=== PATIENT | male | born 1965 | race Caucasian/White ===

== ENCOUNTER 2018-11-08 05:34 | Day surgery (SDC) | payer OTHER ==
[2018-11-03 15:47] LABS: BASOPHILS % (AUTO) 0.7 % (0-1); EOSINOPHILS # (AUTO) 0.1 X10'3 (0-0.9); EOSINOPHILS % (AUTO) 1.7 % (0-6); LYMPHOCYTES # (AUTO) 1.7 X10'3 (1.1-4.8); LYMPHOCYTES % (AUTO) 26.3 % (21-51); MEAN CORPUSCULAR HEMOGLOBIN 31.5 PG (27.0-31.0); MEAN CORPUSCULAR HGB CONC 34.6 g/dL (33.0-36.5); MEAN CORPUSCULAR VOLUME 90.8 FL (78-98); MEAN PLATELET VOLUME 7.8 FL (7.4-10.4); MONOCYTES # (AUTO) 0.4 X10'3 (0-0.9); MONOCYTES % (AUTO) 6.2 % (2-12); NEUTROPHILS # (AUTO) 4.2 X10'3 (1.8-7.7); NEUTROPHILS % (AUTO) 65.1 % (42-75); PRE OP HEMOGLOBIN 14.6 g/dL (14.0-17.9); PRE OP PLATELET COUNT 290 X10'3 (140-440); RED BLOOD COUNT 4.63 X10'6 (4.70-6.10); RED CELL DISTRIBUTION WIDTH 13.1 % (11.5-14.5)
[2018-11-03 15:58] LABS: ALBUMIN 3.8 G/DL (3.4-5.0); ALKALINE PHOSPHATASE 108 IU/L (46-116); BLOOD UREA NITROGEN 23 MG/DL (7-18); BUN/CREATININE RATIO 20.5 (5.4-32.0); CALCIUM 8.5 MG/DL (8.5-10.1); CHLORIDE 107 MMOL/L (99-107); CREATININE 1.12 MG/DL (0.60-1.10); PRE OP ALT 34 U/L (30-65); PRE OP ANION GAP 7 (8-16); PRE OP AST 15 U/L (10-37); PRE OP BILIRUB, TOTAL 0.2 MG/DL (0.0-1.0); PRE OP GLUCOSE 125 MG/DL (70-104); PRE OP POTASSIUM 3.8 MMOL/L (3.4-5.1); PRE OP SODIUM 140 MMOL/L (135-145); TOTAL CARBON DIOXIDE 26.5 MMOL/L (24-32); TOTAL PROTEIN 7.7 G/DL (6.4-8.2); eGFR 68 ML/MIN
[~2018-11-08] VITALS: Ht 177.8 cm; Wt 98.0 kg
[2018-11-08] VITALS (12 sets, daily range): BP systolic 93–137; BP diastolic 42–93
[~2018-11-08 05:34] MED LIST: NO HOME MEDS; cefazolin/dext.iso 2gm/100 ML IV ONE; famotidine 20mg tablet PO ONE; ringers solution, lacted 1,000 ML IV SCH
[2018-11-08] MEDS ORDERED: BUPIVAcaine/PF 2.5 mg/ml (0.25%) 30ml vial ONE (06:40)
[2018-11-08] MEDS ORDERED: LIDOcaine 1% 30ml preserv. free vial ONE (06:41)
[2018-11-08] MEDS ORDERED: midazolam 2 mg/2 ml injection ONE ×2 (07:06→07:15)
[2018-11-08] MEDS ORDERED: propofol inj 20 ML IV ONE (07:15)
[2018-11-08] MEDS ORDERED: fentaNYL/PF 50MCG/1 ML 2ML syringe ONE (07:15)
[2018-11-08] MEDS ORDERED: rocuronium 10mg/ml inj IV ONE (07:15)
[2018-11-08] MEDS ORDERED: sevoflurane 250ml liquid IH ONE (07:18)
[2018-11-08] MEDS ORDERED: ringers solution, lacted 1,000 ML IV SCH (08:15)
[2018-11-08] MEDS ORDERED: proCHLORperazine 10 MG/2 ml inj IV PRN (08:15)
[2018-11-08] MEDS ORDERED: meperidine/PF 25mg/ml syringe IV PRN ×3 (08:15)
[2018-11-08] MEDS ORDERED: ondansetron/PF 4mg/2ml inj IV PRN (08:15)
[2018-11-08] MEDS ORDERED: morphine 4 MG/ML inj SYRINge IV PRN ×2 (08:15)
[2018-11-08] MEDS ORDERED: ketorolac trometh. 30mg/ml inj. IV ONE (08:15)
[2018-11-08] MEDS ORDERED: dexamethasone sod phosphate 4mg/ml inj. ONE (08:55)
[2018-11-08] MEDS ORDERED: acetaminophen 1,000mg/100ml IV 100 ML IV ONE (08:55)
[2018-11-08] MEDS ORDERED: neostigmine methylsulfate 1 MG/ML 10ml vial ONE (08:56)
[2018-11-08] MEDS ORDERED: ondansetron/PF 4mg/2ml inj ONE (08:56)
[2018-11-08] MEDS ORDERED: glycopyrrolate 0.2mg/ml inj ONE (08:56)
--- NOTE | 2018-11-08 09:15 | NUR ---
Received from OR via , accompanied by Anesthesiologist and report given by Anesthesiolgist. PATIENT WAKING UP, DENIES PAIN, V/S WNL, NEUROVASCULAR CHECKS INTACT, 20G PIV RUE , 3 BANDAIDS TO ABDOMEN CDI. SCD ON.
[2018-11-08] MEDS ORDERED: oxyCODONE/APAP 5-325mg tablet PO ONE (09:25)
--- NOTE | 2018-11-08 10:55 | NUR ---
PATIENT A&OX4, DENIES PAIN, V/S WNL, NEUROVASCULAR CHECKS INTACT, 20G PIV LUE D/C, SCD OFF, 4 BANDAIDS TO LAP SIGHTS OF ABDOMEN CDI.. I HAVE REVIEWED D/C INSTRUCTIONS WITH PATIENT AND FAMILY HAVE VERBALIZED UNDERSTANDING.PATIENT WAS D/C HOME WITH ALL BELONGINGS AND FAMILY GAVE TRANSPORT HOME.
== END 2018-11-08 10:55 | disposition home or self-care (01) ==
LOC: PAS 05:34
PROVIDERS: ATTEND Surgery
DX: K40.20 Bilateral inguinal hernia, without obstruction or gangrene, not specified as recurrent (principal); K42.0 Umbilical hernia with obstruction, without gangrene; Z72.89 Other problems related to lifestyle; Z98.52 Vasectomy status; Z83.6 Family history of other diseases of the respiratory system; Z79.899 Other long term (current) drug therapy
CPT/HCPCS: 36415; 49587; 49650; 80053; 82948; 85025; 93005; C1781; J0131; J1100; J1885; J2001; J2175; J2250; J2405; J2704; J2710; J3010; J3490; S2900; A4215; A4618; J7120

== ENCOUNTER 2019-01-11 05:54 | Emergency (ER) | payer OTHER, BC ==
[~2019-01-11] VITALS: Ht 177.8 cm; Wt 91.0 kg
[~2019-01-11 05:54] MED LIST changes: -cefazolin/dext.iso 2gm/100 ML IV ONE; -famotidine 20mg tablet PO ONE; -ringers solution, lacted 1,000 ML IV SCH
[2019-01-11 06:03] VITALS: BP 165/72
[2019-01-11] MEDS ORDERED: predniSONE 20 mg tablet PO ONE (06:55)
[2019-01-11] MEDS ORDERED: diphenhydrAMINE 25mg capsule PO ONE (06:55)
[2019-01-11] MEDS ORDERED: famotidine 20mg tablet PO ONE (06:55)
[2019-01-11] MEDS ORDERED: HYDR25CA PO (07:04)
[2019-01-11] MEDS ORDERED: PRED20TA PO (07:04)
[2019-01-11] MEDS ORDERED: FAMO40TA73 PO (07:04)
[2019-01-12] MEDS ORDERED: PRED10TA23 PO (10:09)
[2019-01-12] MEDS ORDERED: FAMO20TA8 PO (12:53)
== END 2019-01-11 07:34 | disposition home or self-care (01) ==
LOC: ER 05:55
DX: R21 Rash and other nonspecific skin eruption (principal); Z79.899 Other long term (current) drug therapy
CPT/HCPCS: 99284; J7512; Q0163

== ENCOUNTER 2019-01-12 07:44 | Inpatient (IN) | payer BC, OTHER ==
[~2019-01-12] VITALS: Ht 177.8 cm; Wt 98.0 kg
[~2019-01-12 07:44] MED LIST changes: +FAMO40TA73 PO; +HYDR25CA PO; +PRED20TA PO
[2019-01-12 08:48] LABS: BASOPHILS % (AUTO) 0.2 % (0-1); EOSINOPHILS % (AUTO) 0.1 % (0-6); HEMATOCRIT 42.8 % (42.0-52.0); HEMOGLOBIN 14.7 g/dl (14.0-17.9); LYMPHOCYTES # (AUTO) 0.4 X10'3 (1.1-4.8); LYMPHOCYTES % (AUTO) 6.7 % (21-51); MEAN CORPUSCULAR HEMOGLOBIN 31.8 PG (27.0-31.0); MEAN CORPUSCULAR HGB CONC 34.5 g/dL (33.0-36.5); MEAN CORPUSCULAR VOLUME 92.1 FL (78-98); MEAN PLATELET VOLUME 8.1 FL (7.4-10.4); MONOCYTES # (AUTO) 0.2 X10'3 (0-0.9); MONOCYTES % (AUTO) 2.5 % (2-12); NEUTROPHILS # (AUTO) 5.6 X10'3 (1.8-7.7); NEUTROPHILS % (AUTO) 90.5 % (42-75); PLATELET COUNT 227 X10'3 (140-440); RED BLOOD COUNT 4.64 X10'6 (4.70-6.10); RED CELL DISTRIBUTION WIDTH 12.6 % (11.5-14.5); WHITE BLOOD COUNT 6.2 X10'3 (4.5-11.0)
[2019-01-12 09:00] LABS: ALANINE AMINOTRANSFERASE 56 U/L (12-78); ALBUMIN 3.6 G/DL (3.4-5.0); ALBUMIN/GLOBULIN RATIO 0.8 (1.1-1.5); ALKALINE PHOSPHATASE 82 IU/L (46-116); ANION GAP 9 (8-16); ASPARTATE AMINO TRANSFERASE 46 U/L (10-37); BILIRUBIN,TOTAL 0.4 MG/DL (0.1-1.0); BLOOD UREA NITROGEN 23 MG/DL (7-18); BUN/CREATININE RATIO 16.2 (5.4-32.0); CHLORIDE 102 MMOL/L (99-107); CREATININE 1.42 MG/DL (0.60-1.10); GLUCOSE 163 MG/DL (70-104); POTASSIUM 3.8 MMOL/L (3.5-5.1); SODIUM 136 MMOL/L (135-145); TOTAL CARBON DIOXIDE 24.7 MMOL/L (24-32); TOTAL PROTEIN 7.9 G/DL (6.4-8.2); eGFR 52 ML/MIN
[2019-01-12 09:12] LABS: C-REACTIVE PROTEIN 6.17 MG/DL (0.0-0.5)
[2019-01-12] MEDS ORDERED: PRED10TA23 PO (10:09)
[2019-01-12] MEDS ORDERED: diphenhydrAMINE 25mg capsule PO PRN (11:50)
[2019-01-12] MEDS ORDERED: magnesium 4gm in 100ml NS 100 ML IV PRN (11:50)
[2019-01-12] MEDS ORDERED: mag hydrox/Alum hydrox/simeth 30ml oral suspension PO PRN (11:50)
[2019-01-12] MEDS ORDERED: morphine 2 MG/ML inj. syringe IV PRN ×2 (11:50)
[2019-01-12] MEDS ORDERED: methylPREDNISolone sod succ 125mg/2ml vial IV ONE (11:50)
[2019-01-12] MEDS ORDERED: magnesium hydroxide 30ml (MOM) UD suspension PO PRN (11:50)
[2019-01-12] MEDS ORDERED: acetaminophen 325mg tablet PO PRN (11:50)
[2019-01-12] MEDS ORDERED: metoclopramide 5 mg/ml inj IV PRN (11:50)
[2019-01-12] MEDS ORDERED: magnesium Cl slow-release 64mg tablet PO PRN (11:50)
[2019-01-12] MEDS ORDERED: HYDROcodone/acetaminophen 5mg/325mg tablet PO PRN (11:50)
[2019-01-12] MEDS ORDERED: potassium Cl 20 mEq SR tablet PO PRN ×2 (11:50)
[2019-01-12] MEDS ORDERED: acetaminophen 650mg rectal suppository RC PRN (11:50)
[2019-01-12] MEDS ORDERED: potassium CL 10mEq/100ml bag 100 ML IV PRN ×2 (11:50)
[2019-01-12] MEDS ORDERED: ondansetron/PF 4mg/2ml inj IV PRN (11:50)
[2019-01-12] MEDS ORDERED: bisacodyl 10mg suppository rectal RC PRN (11:50)
[2019-01-12] MEDS: K and/or MAG REPLACEMENT MC SCH (11:50)
[2019-01-12] MEDS ORDERED: magnesium 2GM in 50ml NS 50 ML IV PRN (11:50)
[2019-01-12] MEDS ORDERED: HYDROcodone/acetaminophen 10/325mg tab PO PRN (11:50)
[2019-01-12] MEDS ORDERED: ondansetron/PF 4mg/2ml inj IV ONE (11:55)
[2019-01-12] MEDS ORDERED: LORazepam 2 mg/ml vial IV ONE ×2 (11:55→12:10)
[2019-01-12] MEDS: normal saline 1000ml 1,000 ML IV SCH ×2 (12:06→17:01)
[2019-01-12 12:21] LABS: RHEUM FACTOR QUAL REFLEX TITER NEGATIVE (Neg)
[2019-01-12 12:27] LABS: HEMOGLOBIN A1C 5.7 % (4.5-6.2)
[2019-01-12] MEDS: diphenhydrAMINE 50 mg/ml inj IV SCH ×3 (12:28→20:30)
[2019-01-12] MEDS ORDERED: FAMO20TA8 PO (12:53)
[2019-01-12] MEDS ORDERED: piperacillin/tazo 3.375gm/50ml 50 ML IV SCH (12:56)
[2019-01-12] MEDS: famotidine/PF IV inj 40 MG in normal saline 100ml IV soln 96 ML IV SCH (13:00)
[2019-01-12] MEDS: acetaminophen 325mg tablet PO PRN (13:14)
--- NOTE | 2019-01-12 13:30 | NUR ---
paged hospitalist regarding temperature of 103.2.
[2019-01-12] MEDS: methylPREDNISolone sod succ 125mg/2ml vial IV SCH ×2 (14:00→20:25)
[2019-01-12] MEDS ORDERED: VANCOmycin 1250MG/NS 250ml Bag 250 ML IV SCH (14:00)
--- NOTE | 2019-01-12 14:21 | NUR ---
called Dr. William and informed of pts retaken temp. of 103.1. Received VO to give Motrin 600mg PO x1 now and infuse cooled fluids of 1L NS x 1 bolus now.
[2019-01-12] MEDS ORDERED: ibuprofen 200mg tablet PO ONE (14:25)
[2019-01-12] MEDS ORDERED: normal saline 1000ml 1,000 ML IV ONE (14:25)
[2019-01-12 15:00] VITALS: BP 93/59
[2019-01-12] MEDS ORDERED: LORazepam 2 mg/ml vial IV PRN (16:00)
[2019-01-12 17:30] LABS: HIV ANTIBODY 1&2 RAPID NON-REACTIVE (Neg)
[2019-01-12 18:00] VITALS: BP 99/56
--- NOTE | 2019-01-12 18:38 | NUR ---
Patient report to Zachariah CISNEROS
--- NOTE | 2019-01-12 19:00 | NUR ---
Patient in room [facility]TH[facility] 4014. I have received report from Mayank CISNEROS and had the opportunity to ask questions and assume patient care.
[2019-01-12] MEDS: heparin, porcine 5000 units/ml vial SQ SCH (20:35)
[2019-01-12] MEDS: doxycycline inj 100 MG in normal saline 100ml IV soln 100 ML IV SCH (20:42)
[2019-01-12] MEDS ORDERED: temazepam 15mg capsule PO PRN (21:00)
[2019-01-12 22:00] VITALS: BP 99/63
[2019-01-13] MEDS: famotidine/PF IV inj 40 MG in normal saline 100ml IV soln 96 ML IV SCH ×2 (00:04→10:43)
[2019-01-13] MEDS: methylPREDNISolone sod succ 125mg/2ml vial IV SCH ×5 (02:56→20:00)
[2019-01-13] MEDS: diphenhydrAMINE 50 mg/ml inj IV SCH ×3 (02:57→14:19)
[2019-01-13] MEDS: normal saline 1000ml 1,000 ML IV SCH ×2 (04:47→12:20)
[2019-01-13 06:00] VITALS: BP 110/65
--- NOTE | 2019-01-13 06:49 | NUR ---
Patient in room [facility]TH[facility] 4014. I have received report from Zachariah CISNEROS and had the opportunity to ask questions and assume patient care.
[2019-01-13 07:04] LABS: RPR Non Reactive (Non Reactive)
[2019-01-13 07:17] LABS: BASOPHILS % (AUTO) 0 % (0-1); EOSINOPHILS % (AUTO) 0 % (0-6); HEMATOCRIT 42.5 % (42.0-52.0); HEMOGLOBIN 14.7 g/dl (14.0-17.9); LYMPHOCYTES # (AUTO) 0.5 X10'3 (1.1-4.8); LYMPHOCYTES % (AUTO) 6.7 % (21-51); MEAN CORPUSCULAR HEMOGLOBIN 31.9 PG (27.0-31.0); MEAN CORPUSCULAR HGB CONC 34.7 g/dL (33.0-36.5); MEAN PLATELET VOLUME 8.5 FL (7.4-10.4); MONOCYTES # (AUTO) 0.1 X10'3 (0-0.9); MONOCYTES % (AUTO) 1.2 % (2-12); NEUTROPHILS # (AUTO) 7.2 X10'3 (1.8-7.7); NEUTROPHILS % (AUTO) 92.1 % (42-75); PLATELET COUNT 227 X10'3 (140-440); RED BLOOD COUNT 4.62 X10'6 (4.70-6.10); RED CELL DISTRIBUTION WIDTH 12.7 % (11.5-14.5); WHITE BLOOD COUNT 7.8 X10'3 (4.5-11.0)
[2019-01-13 07:34] LABS: ALANINE AMINOTRANSFERASE 51 U/L (12-78); ALBUMIN 3.3 G/DL (3.4-5.0); ALBUMIN/GLOBULIN RATIO 0.7 (1.1-1.5); ALKALINE PHOSPHATASE 68 IU/L (46-116); ANION GAP 11 (8-16); ASPARTATE AMINO TRANSFERASE 24 U/L (10-37); BILIRUBIN,TOTAL 0.3 MG/DL (0.1-1.0); BLOOD UREA NITROGEN 20 MG/DL (7-18); BUN/CREATININE RATIO 18.9 (5.4-32.0); CALCIUM 8.4 MG/DL (8.5-10.1); CHLORIDE 106 MMOL/L (99-107); CHOL/HDL RATIO 4.1 (0.00-4.99); CHOLESTEROL 182 MG/DL (0-200); CREATININE 1.06 MG/DL (0.60-1.10); GLUCOSE 140 MG/DL (70-104); HDL CHOLESTEROL 44 MG/DL (35-60); LDL CHOLESTEROL 128 MG/DL (50-100); MAGNESIUM 2.1 MG/DL (1.5-2.4); PHOSPHORUS 3.1 MG/DL (2.3-4.5); POTASSIUM 3.8 MMOL/L (3.5-5.1); SODIUM 142 MMOL/L (135-145); TRIGLYCERIDES 71 MG/DL (20-135); eGFR 73 ML/MIN
[2019-01-13] MEDS: doxycycline inj 100 MG in normal saline 100ml IV soln 100 ML IV SCH ×2 (08:04→20:23)
[2019-01-13] MEDS: heparin, porcine 5000 units/ml vial SQ SCH ×2 (08:05→20:22)
[2019-01-13] MEDS: K and/or MAG REPLACEMENT MC SCH (08:08)
[2019-01-13 09:59] LABS: URINE AMPHETAMINE SCREEN NEGATIVE (Neg); URINE BARBITUATE SCREEN NEGATIVE (Neg); URINE BENZODIAZEPINES SCREEN NEGATIVE (Neg); URINE CANNABINOID SCREEN NEGATIVE (Neg); URINE COCAINE SCREEN NEGATIVE (Neg); URINE METHADONE SCREEN NEGATIVE (Neg); URINE OPIATE SCREEN NEGATIVE (Neg); URINE PHENCYCLIDINE SCREEN NEGATIVE (Neg)
[2019-01-13 10:00] VITALS: BP 111/74
[2019-01-13 10:06] LABS: CLARITY,URINE CLEAR (Clear); COLOR,URINE YELLOW (Yellow); GLUCOSE, URINE >=1000 mg/dl (Neg); KETONES,URINE NEGATIVE (Neg); LEUKOCYTE ESTERASE ,URINE NEGATIVE (Neg); NITRITES, URINE NEGATIVE (Neg); OCCULT BLOOD,URINE SMALL (Neg); PH,URINE 5.5 (4.8-8.0); PROTEIN,URINE NEGATIVE (Neg); UROBILINOGEN,URINE 0.2 E.U/dL (0.2-1.0)
[2019-01-13 10:07] LABS: UA COLLECTION TYPE NON-SPECIFIED
[2019-01-13 10:11] LABS: SQUAMOUS EPITHELIAL CELL,UR FEW /LPF (FEW)
[2019-01-13 10:12] LABS: BACTERIA,URINE FEW /HPF (Neg); RBC,URINE 20-50 /HPF (0-2); WBC,URINE 0-4 /HPF (0-4)
[2019-01-13] MEDS: acetaminophen 325mg tablet PO PRN (15:06)
--- NOTE | 2019-01-13 18:24 | NUR ---
Problems reprioritized. Patient report given, questions answered & plan of care reviewed with Zachariah CISNEROS.
[2019-01-13 20:00] VITALS: BP 123/72
[2019-01-13] MEDS: famotidine 20mg tablet PO SCH (20:21)
[2019-01-13] MEDS: lactobacillus rhamnosus 10,000 MMU CELLS/CAPSULE PO SCH (20:21)
[2019-01-13 22:00] VITALS: BP 130/69
[2019-01-14] MEDS: methylPREDNISolone sod succ 125mg/2ml vial IV SCH ×3 (00:13→16:10)
[2019-01-14] MEDS ORDERED: VANCOMYCIN LEVEL IV ONE (01:30)
[2019-01-14 06:00] VITALS: BP 110/68
--- NOTE | 2019-01-14 06:00 | NUR ---
Patient in room [facility]TH[facility] 4014. I have received report from Zachariah CISNEROS and had the opportunity to ask questions and assume patient care.
[2019-01-14 06:24] LABS: ALANINE AMINOTRANSFERASE 44 U/L (12-78); ALBUMIN 3.2 G/DL (3.4-5.0); ALBUMIN/GLOBULIN RATIO 0.7 (1.1-1.5); ALKALINE PHOSPHATASE 63 IU/L (46-116); ANION GAP 8 (8-16); ASPARTATE AMINO TRANSFERASE 19 U/L (10-37); BILIRUBIN,TOTAL 0.3 MG/DL (0.1-1.0); BLOOD UREA NITROGEN 22 MG/DL (7-18); BUN/CREATININE RATIO 20.2 (5.4-32.0); CALCIUM 8.5 MG/DL (8.5-10.1); CHLORIDE 106 MMOL/L (99-107); CREATININE 1.09 MG/DL (0.60-1.10); GLUCOSE 139 MG/DL (70-104); MAGNESIUM 2.2 MG/DL (1.5-2.4); PHOSPHORUS 3.6 MG/DL (2.3-4.5); POTASSIUM 4.1 MMOL/L (3.5-5.1); SODIUM 141 MMOL/L (135-145); TOTAL CARBON DIOXIDE 27.1 MMOL/L (24-32); TOTAL PROTEIN 7.7 G/DL (6.4-8.2); eGFR 70 ML/MIN
[2019-01-14 06:39] LABS: BASOPHILS % (AUTO) 0.1 % (0-1); NEUTROPHILS % (AUTO) 89.8 % (42-75)
[2019-01-14 06:41] LABS: EOSINOPHILS % (AUTO) 0.1 % (0-6); HEMOGLOBIN 14.5 g/dl (14.0-17.9); LYMPHOCYTES # (AUTO) 0.8 X10'3 (1.1-4.8); LYMPHOCYTES % (AUTO) 7.5 % (21-51); MEAN CORPUSCULAR HGB CONC 35.3 g/dL (33.0-36.5); MEAN CORPUSCULAR VOLUME 90.8 FL (78-98); MONOCYTES # (AUTO) 0.2 X10'3 (0-0.9); MONOCYTES % (AUTO) 2.5 % (2-12); NEUTROPHILS # (AUTO) 9.1 X10'3 (1.8-7.7); PLATELET COUNT 288 X10'3 (140-440); RED BLOOD COUNT 4.51 X10'6 (4.70-6.10); RED CELL DISTRIBUTION WIDTH 12.5 % (11.5-14.5); WHITE BLOOD COUNT 10.1 X10'3 (4.5-11.0)
[2019-01-14] MEDS: famotidine 20mg tablet PO SCH (07:52)
[2019-01-14] MEDS: lactobacillus rhamnosus 10,000 MMU CELLS/CAPSULE PO SCH (07:52)
[2019-01-14] MEDS: doxycycline inj 100 MG in normal saline 100ml IV soln 100 ML IV SCH (07:52)
[2019-01-14] MEDS: heparin, porcine 5000 units/ml vial SQ SCH (07:53)
[2019-01-14] MEDS: K and/or MAG REPLACEMENT MC SCH (08:00)
[2019-01-14 09:06] LABS: HBSAG SCREEN Negative (Negative); HEP A AB, IGM Negative (Negative); HEP B CORE AB, IGM Negative (Negative); HEPATITIS C ANTIBODY <0.1 s/co ratio (0.0-0.9)
[2019-01-14 10:00] VITALS: BP 137/79
[2019-01-14] MEDS ORDERED: DIPH-423 PO (15:29)
[2019-01-14] MEDS ORDERED: DOXY100C2 PO (15:30)
[2019-01-14] MEDS ORDERED: PRED10TA23 PO (15:30)
== END 2019-01-14 16:40 | disposition home or self-care (01) | DRG 684 ==
LOC: ER 07:44 → ED HOLD 11:48 → ORTHO 4S 15:09
PROVIDERS: ADMIT Family Medicine; ATTEND Hospitalist
DX: N17.9 Acute kidney failure, unspecified (principal); R21 Rash and other nonspecific skin eruption; Z80.0 Family history of malignant neoplasm of digestive organs; Z82.0 Family history of epilepsy and other diseases of the nervous system; Z82.5 Family history of asthma and other chronic lower respiratory diseases
CPT/HCPCS: 36415; 71045; 80053; 80061; 80305; 81001; 83036; 83605; 83735; 84100; 84145; 85025; 85610; 85651; 86038; 86140; 86430; 86592; 86695; 86696; 86703; 86705; 86706; 86709; 86803; 87040; 87340; 99285; G0378; J1200; J1644; J2060; J2405; J2543; J2930; J3370; J3490; J7030

== ENCOUNTER 2019-03-28 05:21 | Day surgery (SDC) | payer OTHER ==
[2019-03-24 16:11] LABS: BASOPHILS % (AUTO) 0.8 % (0-1); EOSINOPHILS # (AUTO) 0.1 X10'3 (0-0.9); LYMPHOCYTES # (AUTO) 1.9 X10'3 (1.1-4.8); LYMPHOCYTES % (AUTO) 33.5 % (21-51); MEAN CORPUSCULAR HEMOGLOBIN 31.9 PG (27.0-31.0); MEAN CORPUSCULAR HGB CONC 35.3 g/dL (33.0-36.5); MEAN CORPUSCULAR VOLUME 90.4 FL (78-98); MONOCYTES # (AUTO) 0.5 X10'3 (0-0.9); NEUTROPHILS # (AUTO) 3.2 X10'3 (1.8-7.7); NEUTROPHILS % (AUTO) 55.7 % (42-75); PRE OP HEMATOCRIT 43.2 % (42.0-52.0); PRE OP HEMOGLOBIN 15.2 g/dL (14.0-17.9); PRE OP PLATELET COUNT 319 X10'3 (140-440); RED BLOOD COUNT 4.77 X10'6 (4.70-6.10)
[2019-03-24 16:17] LABS: ALBUMIN/GLOBULIN RATIO 1.1 (1.1-1.5); ALKALINE PHOSPHATASE 108 IU/L (46-116); BLOOD UREA NITROGEN 20 MG/DL (7-18); BUN/CREATININE RATIO 18.5 (5.4-32.0); CALCIUM 8.6 MG/DL (8.5-10.1); CHLORIDE 106 MMOL/L (99-107); CREATININE 1.08 MG/DL (0.60-1.10); PRE OP ALT 36 U/L (30-65); PRE OP ANION GAP 10 (8-16); PRE OP AST 19 U/L (10-37); PRE OP BILIRUB, TOTAL 0.3 MG/DL (0.0-1.0); PRE OP GLUCOSE 108 MG/DL (70-104); PRE OP POTASSIUM 4.1 MMOL/L (3.4-5.1); PRE OP SODIUM 142 MMOL/L (135-145); TOTAL CARBON DIOXIDE 26.5 MMOL/L (24-32); TOTAL PROTEIN 7.6 G/DL (6.4-8.2); eGFR 71 ML/MIN
[2019-03-28] VITALS (16 sets, daily range): BP systolic 106–160; BP diastolic 55–94
[~2019-03-28] VITALS: Ht 152.4 cm; Wt 98.0 kg
[~2019-03-28 05:21] MED LIST changes: -FAMO40TA73 PO; -HYDR25CA PO; -PRED20TA PO; +ringers solution, lacted 1,000 ML IV SCH
[2019-03-28] MEDS ORDERED: cefazolin/dext.iso 2gm/100ml 100 ML IV ONE (05:30)
[2019-03-28] MEDS ORDERED: famotidine 10mg tablet PO ONE (05:30)
[2019-03-28] MEDS ORDERED: LIDOcaine 1% 30ml preserv. free vial ONE (06:55)
[2019-03-28] MEDS ORDERED: BUPIVAcaine/PF 2.5 mg/ml (0.25%) 30ml vial ONE (06:56)
[2019-03-28] MEDS ORDERED: BUPIVACAINE liposomal/PF 13.3 MG/ML vial IM ONE (06:56)
[2019-03-28] MEDS ORDERED: BUPIVAcaine/PF 2.5mg/ml (0.25%) 10ml vial ONE (06:56)
[2019-03-28] MEDS ORDERED: midazolam 2 mg/2 ml injection ONE ×2 (07:08→07:17)
[2019-03-28] MEDS ORDERED: fentaNYL/PF 50MCG/1 ML 2ML syringe ONE (07:17)
[2019-03-28] MEDS ORDERED: propofol inj 20 ML IV ONE (07:18)
[2019-03-28] MEDS ORDERED: rocuronium 10mg/ml inj IV ONE (07:18)
[2019-03-28] MEDS ORDERED: ondansetron/PF 4mg/2ml inj ONE (07:21)
[2019-03-28] MEDS ORDERED: sevoflurane 250ml liquid IH ONE (07:21)
[2019-03-28] MEDS ORDERED: dexamethasone sod phosphate 4mg/ml inj. ONE (07:37)
[2019-03-28] MEDS ORDERED: ringers solution, lacted 1,000 ML IV SCH (08:03)
[2019-03-28] MEDS ORDERED: ondansetron/PF 4mg/2ml inj IV PRN (08:05)
[2019-03-28] MEDS ORDERED: meperidine/PF 25mg/ml syringe IV PRN ×3 (08:05)
[2019-03-28] MEDS ORDERED: proCHLORperazine 10 MG/2 ml inj IV PRN (08:05)
[2019-03-28] MEDS ORDERED: morphine 4 MG/ML inj SYRINge IV PRN ×2 (08:05)
[2019-03-28] MEDS ORDERED: neostigmine methylsulfate 1 MG/ML 10ml vial ONE (08:28)
[2019-03-28] MEDS ORDERED: glycopyrrolate 0.2mg/ml inj ONE (08:45)
[2019-03-28] MEDS ORDERED: oxyCODONE/APAP 5-325mg tablet PO PRN ×2 (08:55)
--- NOTE | 2019-03-28 08:55 | NUR ---
ADMITTED TO PACU FROM OR ACCOMPANIED BY ANESTHESIA. INTIAL PHYSICAL ASSESSMENT DONE AND RECORDED. REPORT RECEIVED FROM ANESTHESIA.
--- NOTE | 2019-03-28 11:15 | NUR ---
DISCHARGE CRITERIA MET, DISCHARGE INSTRUCTIONS GIVEN, DEMONSTRATES VERBAL UNDERSTANDING. DISCHARGED HOME IN GOOD CONDITION.
== END 2019-03-28 11:15 | disposition home or self-care (01) ==
LOC: PAS 05:21
PROVIDERS: ATTEND Surgery
DX: K42.9 Umbilical hernia without obstruction or gangrene (principal); Z79.899 Other long term (current) drug therapy
CPT/HCPCS: 36415; 49652; 64488; 80053; 82948; 85025; C1781; C9290; J1100; J2001; J2175; J2250; J2405; J2704; J2710; J3010; J3490; S2900; A4215; A4618; J7120

== ENCOUNTER 2019-10-25 20:54 | Emergency (ER) | payer OTHER ==
[~2019-10-25] VITALS: Ht 172.7 cm; Wt 95.0 kg
[~2019-10-25 20:54] MED LIST changes: -ringers solution, lacted 1,000 ML IV SCH
[2019-10-25 21:50] LABS: BASOPHILS % (AUTO) 0.3 % (0-1); EOSINOPHILS # (AUTO) 0.1 X10'3 (0-0.9); EOSINOPHILS % (AUTO) 0.7 % (0-6); HEMATOCRIT 42.8 % (42.0-52.0); HEMOGLOBIN 14.9 g/dl (14.0-17.9); LYMPHOCYTES # (AUTO) 1.2 X10'3 (1.1-4.8); LYMPHOCYTES % (AUTO) 14.5 % (21-51); MEAN CORPUSCULAR HEMOGLOBIN 31.8 PG (27.0-31.0); MEAN CORPUSCULAR HGB CONC 34.7 g/dL (33.0-36.5); MEAN CORPUSCULAR VOLUME 91.7 FL (78-98); MONOCYTES # (AUTO) 0.4 X10'3 (0-0.9); MONOCYTES % (AUTO) 5.5 % (2-12); NEUTROPHILS # (AUTO) 6.3 X10'3 (1.8-7.7); PLATELET COUNT 269 X10'3 (140-440); RED BLOOD COUNT 4.67 X10'6 (4.70-6.10); RED CELL DISTRIBUTION WIDTH 12.9 % (11.5-14.5)
[2019-10-25 22:04] LABS: ALANINE AMINOTRANSFERASE 33 U/L (12-78); ALBUMIN/GLOBULIN RATIO 1.1 (1.1-1.5); ALKALINE PHOSPHATASE 86 IU/L (46-116); ANION GAP 7 (8-16); ASPARTATE AMINO TRANSFERASE 23 U/L (10-37); BILIRUBIN,TOTAL 0.4 MG/DL (0.1-1.0); BLOOD UREA NITROGEN 20 MG/DL (7-18); BUN/CREATININE RATIO 18.5 (5.4-32.0); CALCIUM 8.5 MG/DL (8.5-10.1); CHLORIDE 103 MMOL/L (99-107); CREATININE 1.08 MG/DL (0.60-1.10); GLUCOSE 121 MG/DL (70-104); POTASSIUM 3.8 MMOL/L (3.5-5.1); SODIUM 136 MMOL/L (135-145); TOTAL CARBON DIOXIDE 26.3 MMOL/L (24-32); TOTAL PROTEIN 7.7 G/DL (6.4-8.2); eGFR 71 ML/MIN
[2019-10-25 22:16] LABS: PARTIAL THROMBOPLASTIN TIME 23 SECONDS (22-32)
[2019-10-25] MEDS ORDERED: normal saline 1000ML IV soln IVB ONE (22:25)
[2019-10-25] MEDS ORDERED: iohexol 350MG/ML 100ml bottle IV ONE (22:35)
[2019-10-25 23:50] VITALS: BP 129/72
== END 2019-10-25 23:53 | disposition home or self-care (01) ==
LOC: ER 20:54
DX: R42 Dizziness and giddiness (principal); R53.83 Other fatigue; R11.2 Nausea with vomiting, unspecified; R51 Headache
CPT/HCPCS: 36415; 70450; 70496; 70498; 80053; 85025; 85730; 96360; 99285; J7030; Q9967

== ENCOUNTER 2023-01-13 07:13 | Outpatient (CLI) | payer BC ==
[2023-01-13 07:41] LABS: BASOPHILS % (AUTO) 0.6 % (0-1); EOSINOPHILS # (AUTO) 0.2 X10'3 (0-0.9); HEMATOCRIT 44.6 % (42.0-52.0); HEMOGLOBIN 15.4 g/dl (14.0-17.9); LYMPHOCYTES # (AUTO) 1.5 X10'3 (1.1-4.8); LYMPHOCYTES % (AUTO) 34.6 % (21-51); MEAN CORPUSCULAR HEMOGLOBIN 31.8 PG (27.0-31.0); MEAN CORPUSCULAR HGB CONC 34.6 g/dL (33.0-36.5); MEAN PLATELET VOLUME 7.9 FL (7.4-10.4); MONOCYTES # (AUTO) 0.4 X10'3 (0-0.9); MONOCYTES % (AUTO) 8.3 % (2-12); NEUTROPHILS # (AUTO) 2.3 X10'3 (1.8-7.7); NEUTROPHILS % (AUTO) 52.5 % (42-75); PLATELET COUNT 295 X10'3 (140-440); RED BLOOD COUNT 4.85 X10'6 (4.70-6.10); RED CELL DISTRIBUTION WIDTH 12.6 % (11.5-14.5); WHITE BLOOD COUNT 4.4 X10'3 (4.5-11.0)
[2023-01-13 08:11] LABS: ALANINE AMINOTRANSFERASE 34 U/L (12-78); ALBUMIN 3.9 G/DL (3.4-5.0); ALKALINE PHOSPHATASE 102 IU/L (46-116); ANION GAP 7 (8-16); ASPARTATE AMINO TRANSFERASE 19 U/L (10-37); BILIRUBIN,TOTAL 0.5 MG/DL (0.1-1.0); BLOOD UREA NITROGEN 12 MG/DL (7-18); BUN/CREATININE RATIO 11.5 (10.0-20.0); CALCIUM 8.9 MG/DL (8.5-10.1); CHLORIDE 104 MMOL/L (99-107); CHOL/HDL RATIO 5.3 (0.00-4.99); CHOLESTEROL 212 MG/DL (0-200); CREATININE 1.04 MG/DL (0.60-1.10); GLUCOSE 103 MG/DL (70-104); HDL CHOLESTEROL 40 MG/DL (35-60); LDL CHOLESTEROL 136 MG/DL (50-100); POTASSIUM 4.1 MMOL/L (3.5-5.1); SODIUM 137 MMOL/L (135-145); THYROID STIMULATING HORMONE 2.71 ulU/ml (0.34-4.50); TOTAL CARBON DIOXIDE 26.1 MMOL/L (24-32); TOTAL PROTEIN 7.7 G/DL (6.4-8.2); TRIGLYCERIDES 162 MG/DL (20-135); eGFR 73 ML/MIN
[2023-01-14 10:50] LABS: % FREE PSA 21.1 % (.); PROSTATE SPECIFIC AG, SERUM 0.9 ng/mL (0.0-4.0); PSA, FREE 0.19 ng/mL; TESTOSTERONE, SERUM 325 ng/dL (264-916)
== END 2023-01-13 23:59 | disposition home or self-care (01) ==
LOC: LAB 07:13
PROVIDERS: ATTEND Family Medicine
DX: N40.0 Benign prostatic hyperplasia without lower urinary tract symptoms (principal); E55.9 Vitamin D deficiency, unspecified; E78.5 Hyperlipidemia, unspecified; R53.82 Chronic fatigue, unspecified
CPT/HCPCS: 36415; 80053; 80061; 82306; 84153; 84154; 84402; 84403; 84443; 85025

== ENCOUNTER 2023-11-09 05:43 | Outpatient (CLI) | payer BC ==
[2023-11-09 06:21] LABS: BASOPHILS % (AUTO) 0.8 % (0-1); EOSINOPHILS # (AUTO) 0.2 X10'3 (0-0.9); EOSINOPHILS % (AUTO) 5.9 % (0-6); HEMATOCRIT 42.9 % (42.0-52.0); HEMOGLOBIN 14.6 g/dl (14.0-17.9); LYMPHOCYTES # (AUTO) 1.5 X10'3 (1.1-4.8); LYMPHOCYTES % (AUTO) 37.9 % (21-51); MEAN CORPUSCULAR HEMOGLOBIN 31.7 PG (27.0-31.0); MEAN CORPUSCULAR HGB CONC 34.1 g/dL (33.0-36.5); MEAN CORPUSCULAR VOLUME 93.1 FL (78-98); MEAN PLATELET VOLUME 7.9 FL (7.4-10.4); MONOCYTES # (AUTO) 0.4 X10'3 (0-0.9); MONOCYTES % (AUTO) 9.6 % (2-12); NEUTROPHILS # (AUTO) 1.9 X10'3 (1.8-7.7); NEUTROPHILS % (AUTO) 45.8 % (42-75); PLATELET COUNT 289 X10'3 (140-440); RED BLOOD COUNT 4.61 X10'6 (4.70-6.10); RED CELL DISTRIBUTION WIDTH 12.6 % (11.5-14.5); WHITE BLOOD COUNT 4.1 X10'3 (4.5-11.0)
[2023-11-09 06:43] LABS: ALANINE AMINOTRANSFERASE 29 U/L (12-78); ALBUMIN 3.7 G/DL (3.4-5.0); ALKALINE PHOSPHATASE 97 IU/L (46-116); ANION GAP 7 (8-16); ASPARTATE AMINO TRANSFERASE 20 U/L (10-37); BILIRUBIN,TOTAL 0.4 MG/DL (0.1-1.0); BLOOD UREA NITROGEN 21 MG/DL (7-18); BUN/CREATININE RATIO 22.6 (10.0-20.0); CALCIUM 8.7 MG/DL (8.5-10.1); CHLORIDE 107 MMOL/L (99-107); CHOL/HDL RATIO 4.4 (0.00-4.99); CHOLESTEROL 194 MG/DL (0-200); CREATININE 0.93 MG/DL (0.60-1.10); FREE T4 (FREE THYROXINE) 0.89 NG/DL (0.73-1.40); GLUCOSE 102 MG/DL (70-104); HDL CHOLESTEROL 44 MG/DL (35-60); LDL CHOLESTEROL 126 MG/DL (50-100); POTASSIUM 4.1 MMOL/L (3.5-5.1); SODIUM 141 MMOL/L (135-145); TOTAL CARBON DIOXIDE 26.9 MMOL/L (24-32); TOTAL PROTEIN 7.4 G/DL (6.4-8.2); TRIGLYCERIDES 103 MG/DL (20-135); eGFR 83 ML/MIN
[2023-11-10 18:29] LABS: MICROALBUMIN,U,RANDOM 13.1 ug/mL (Not Estab.)
[2023-11-11 06:02] LABS: PSA, ULTRASENSITIVE W/O SERIAL 0.805 ng/mL (0.000-4.000)
== END 2023-11-09 23:59 | disposition home or self-care (01) ==
LOC: LAB 05:43
PROVIDERS: ATTEND Family Medicine
DX: Z00.00 Encounter for general adult medical examination without abnormal findings (principal); R68.89 Other general symptoms and signs; R79.89 Other specified abnormal findings of blood chemistry; E78.00 Pure hypercholesterolemia, unspecified; R94.6 Abnormal results of thyroid function studies; E55.9 Vitamin D deficiency, unspecified; R97.20 Elevated prostate specific antigen [PSA]; R80.9 Proteinuria, unspecified
CPT/HCPCS: 36415; 80053; 80061; 82043; 82306; 82570; 84153; 84439; 84443; 85025

== ENCOUNTER 2025-02-02 07:45 | Outpatient (CLI) | payer BC ==
[2025-02-02 08:35] LABS: MEAN PLATELET VOLUME 8.2 FL (7.4-10.4); RED CELL DISTRIBUTION WIDTH 12.5 % (11.5-14.5)
[2025-02-02 08:45] LABS: CHOL/HDL RATIO 4.5 (0.00-4.99); CREATININE 0.96 MG/DL (0.60-1.10); LDL CHOLESTEROL 145 MG/DL (50-100); TOTAL CARBON DIOXIDE 28.0 MMOL/L (24-32); eGFR 80 ML/MIN
[2025-02-03 11:12] LABS: VITAMIN D, 25-HYDROXY 30.2 ng/mL (30.0-100.0)
[2025-02-03 13:12] LABS: CREATININE, URINE 123.2 mg/dL (Not Estab.); MICROALB/CRT, RATIO 9 mg/g creat (0-29); MICROALBUMIN,U,RANDOM 10.6 ug/mL (Not Estab.); PSA, ULTRASENSITIVE W/O SERIAL 1.020 ng/mL (0.000-4.000); TESTOSTERONE, SERUM 419 ng/dL (264-916)
[2025-02-06 05:28] LABS: TESTOSTERONE, FREE, DIRECT 11.4 pg/mL (6.6-18.1)
== END 2025-02-02 23:59 | disposition home or self-care (01) ==
LOC: LAB 07:45
PROVIDERS: ATTEND Family Medicine
DX: Z00.01 Encounter for general adult medical examination with abnormal findings (principal); R80.9 Proteinuria, unspecified; E55.9 Vitamin D deficiency, unspecified; R68.89 Other general symptoms and signs; R53.83 Other fatigue; R79.89 Other specified abnormal findings of blood chemistry; E78.00 Pure hypercholesterolemia, unspecified; R73.01 Impaired fasting glucose; E03.9 Hypothyroidism, unspecified
CPT/HCPCS: 36415; 80053; 80061; 82043; 82306; 82570; 83036; 84153; 84402; 84403; 84439; 84443; 85025